=== PATIENT | male | born 1960 | race Caucasian/White ===

== ENCOUNTER 2021-08-30 22:36 | Inpatient (IN) ==
[2021-08-30] MEDS ORDERED: *HR* OxyCODONE Immed Rel 5 MG TABLET PO PRN (22:38)
[2021-08-30] MEDS ORDERED: Dextrose Gel 15 GM/37.5 ML TUBE PO PRN ×2 (22:41)
[2021-08-30] MEDS ORDERED: D5% in Water 1,000 ML IVC PRN (22:41)
[2021-08-30] MEDS ORDERED: *HR* Dextrose 50 % in Water (Syg) 50 ML SYRINGE IVP PRN (22:41)
[2021-08-31] MEDS ORDERED: Lactulose Oral Soln 20 GM/30 ML UDC PO PRN (06:13)
[2021-08-31] MEDS ORDERED: Bisacodyl 10 MG RECTAL SUPPOSITORY RC PRN (06:13)
[2021-08-31 07:21] LABS: Basophils # 0.1 K/mcL (0.0-0.2); Basophils % 0.7 %; Eosinophils # 0.3 K/mcL (0.0-0.6); Eosinophils % 4.3 %; Hematocrit 31.6 % (37.5-50.1); Immature Granulocytes % 0.7 % (0-4); Lymphocytes # 0.6 K/mcL (0.6-4.6); Lymphocytes % 9.5 %; Mean Corpuscular HGB Conc 31.6 g/dL (31.6-35.5); Mean Corpuscular Hemoglobin 27.9 pg (28.0-33.3); Mean Corpuscular Volume 88.3 fL (83.0-100.0); Mean Platelet Volume 9.7 fL (9.4-12.4); Monocytes # 0.8 K/mcL (0.0-1.3); Monocytes % 11.5 %; Platelet Count 340 K/mcL (140-400); Red Blood Count 3.58 M/mcL (4.19-5.50); Red Cell Distribution Width 14.4 % (11.5-14.5); Segmented Neutrophils % 73.3 %; White Blood Count 6.8 K/mcL (4.3-11.1)
[2021-08-31 07:46] LABS: Potassium 4.8 mEq/L (3.5-5.1)
[2021-08-31] MEDS: Insulin LISPRO 300 UNITS/3 ML VIAL SUBQ SCH ×4 (08:43→21:43)
[2021-08-31] MEDS: Apixaban 5 MG TABLET PO SCH ×2 (08:45→22:10)
[2021-08-31] MEDS: lisinopriL 5 MG TABLET PO SCH (08:45)
[2021-08-31] MEDS: Ascorbic Acid 500 MG TABLET PO SCH (08:45)
[2021-08-31] MEDS: Sennosides/Docusate Sodium TABLET PO SCH ×2 (08:45→22:10)
[2021-08-31] MEDS: carvediloL 6.25 MG TABLET PO SCH ×2 (08:45→17:28)
[2021-08-31] MEDS: GlipiZIDE 5 MG TABLET PO SCH ×2 (08:45→22:10)
[2021-08-31] MEDS: amLODIPine 5 MG TABLET PO SCH (08:46)
[2021-08-31] MEDS: Furosemide 40 MG TABLET PO SCH (08:46)
[2021-08-31] MEDS ORDERED: polyethylene glycoL 3350 17 GM POWD.PACK PO SCH (09:00)
[2021-09-01 07:13] LABS: Hemoglobin 8.6 g/dL (12.9-16.9)
[2021-09-01] MEDS: carvediloL 6.25 MG TABLET PO SCH ×3 (08:10→18:48)
[2021-09-01] MEDS: Ascorbic Acid 500 MG TABLET PO SCH (08:10)
[2021-09-01] MEDS: GlipiZIDE 5 MG TABLET PO SCH ×2 (08:10→21:34)
[2021-09-01] MEDS: Apixaban 5 MG TABLET PO SCH ×2 (08:10→21:35)
[2021-09-01] MEDS: Sennosides/Docusate Sodium TABLET PO SCH ×2 (08:11→21:35)
[2021-09-01] MEDS: Furosemide 40 MG TABLET PO SCH (08:11)
[2021-09-01] MEDS: amLODIPine 5 MG TABLET PO SCH (08:11)
[2021-09-01] MEDS: lisinopriL 5 MG TABLET PO SCH (08:11)
[2021-09-01] MEDS: Insulin LISPRO 300 UNITS/3 ML VIAL SUBQ SCH ×4 (08:12→21:36)
[2021-09-02] MEDS: Acetaminophen 325 MG TABLET PO PRN ×2 (07:11→17:28)
[2021-09-02] MEDS: carvediloL 6.25 MG TABLET PO SCH ×2 (07:12→17:49)
[2021-09-02] MEDS: Insulin LISPRO 300 UNITS/3 ML VIAL SUBQ SCH ×4 (07:16→20:36)
[2021-09-02] MEDS: lisinopriL 5 MG TABLET PO SCH (08:26)
[2021-09-02] MEDS: Ascorbic Acid 500 MG TABLET PO SCH (08:26)
[2021-09-02] MEDS: amLODIPine 5 MG TABLET PO SCH (08:26)
[2021-09-02] MEDS: Sennosides/Docusate Sodium TABLET PO SCH ×2 (08:26→20:47)
[2021-09-02] MEDS: GlipiZIDE 5 MG TABLET PO SCH ×2 (08:26→20:47)
[2021-09-02] MEDS: Apixaban 5 MG TABLET PO SCH ×2 (08:26→20:47)
[2021-09-02] MEDS: Furosemide 40 MG TABLET PO SCH (08:27)
[2021-09-03] MEDS: Acetaminophen 325 MG TABLET PO PRN (03:14)
[2021-09-03 06:39] LABS: Basophils # 0.1 K/mcL (0.0-0.2); Basophils % 0.7 %; Eosinophils # 0.4 K/mcL (0.0-0.6); Eosinophils % 4.9 %; Hemoglobin 9.6 g/dL (12.9-16.9); Immature Granulocytes % 0.7 % (0-4); Lymphocytes # 0.7 K/mcL (0.6-4.6); Lymphocytes % 9.8 %; Mean Corpuscular Hemoglobin 27.1 pg (28.0-33.3); Mean Corpuscular Volume 87.6 fL (83.0-100.0); Mean Platelet Volume 9.2 fL (9.4-12.4); Monocytes # 0.6 K/mcL (0.0-1.3); Monocytes % 8.4 %; Neutrophils # 5.7 K/mcL (1.6-8.9); Platelet Count 357 K/mcL (140-400); Red Blood Count 3.54 M/mcL (4.19-5.50); Red Cell Distribution Width 14.5 % (11.5-14.5); Segmented Neutrophils % 75.5 %; White Blood Count 7.5 K/mcL (4.3-11.1)
[2021-09-03 07:14] LABS: Albumin 3.3 g/dL (3.5-5.7); Albumin/Globulin Ratio 0.9 (1.1-2.2); Bilirubin,Total 0.3 mg/dL (0.3-1.0); Calcium 9.8 mg/dL (8.6-10.3); Globulin 3.6 g/dL (2.4-3.5); Magnesium 2.3 mg/dL (1.6-2.6); Potassium 4.3 mEq/L (3.5-5.1); Total Protein 6.9 g/dL (6.4-8.9)
[2021-09-03] MEDS: GlipiZIDE 5 MG TABLET PO SCH ×2 (07:52→21:40)
[2021-09-03] MEDS: lisinopriL 5 MG TABLET PO SCH (07:53)
[2021-09-03] MEDS: Ascorbic Acid 500 MG TABLET PO SCH (07:53)
[2021-09-03] MEDS: Furosemide 40 MG TABLET PO SCH (07:53)
[2021-09-03] MEDS: amLODIPine 5 MG TABLET PO SCH (07:53)
[2021-09-03] MEDS: Apixaban 5 MG TABLET PO SCH ×2 (07:53→21:41)
[2021-09-03] MEDS: carvediloL 6.25 MG TABLET PO SCH ×2 (07:53→18:28)
[2021-09-03] MEDS: Insulin LISPRO 300 UNITS/3 ML VIAL SUBQ SCH ×4 (07:54→21:42)
[2021-09-03] MEDS: Sennosides/Docusate Sodium TABLET PO SCH ×2 (07:55→21:41)
[2021-09-03] MEDS: Ergocalciferol (VIT D2) 50,000 UNIT (1.25MG) CAP PO SCH (08:37)
[2021-09-04] MEDS: Insulin LISPRO 300 UNITS/3 ML VIAL SUBQ SCH ×4 (07:48→21:52)
[2021-09-04] MEDS: carvediloL 6.25 MG TABLET PO SCH ×2 (08:31→17:07)
[2021-09-04] MEDS: GlipiZIDE 5 MG TABLET PO SCH ×2 (08:32→21:49)
[2021-09-04] MEDS: Sennosides/Docusate Sodium TABLET PO SCH ×2 (08:32→21:50)
[2021-09-04] MEDS: Apixaban 5 MG TABLET PO SCH ×2 (08:32→21:51)
[2021-09-04] MEDS: Calcium Acetate 667 MG CAPSULE PO SCH ×3 (08:32→17:07)
[2021-09-04] MEDS: lisinopriL 5 MG TABLET PO SCH (08:32)
[2021-09-04] MEDS: amLODIPine 5 MG TABLET PO SCH (08:32)
[2021-09-04] MEDS: Furosemide 40 MG TABLET PO SCH (08:32)
[2021-09-04] MEDS: Ascorbic Acid 500 MG TABLET PO SCH (08:32)
[2021-09-04] MEDS: Acetaminophen 325 MG TABLET PO PRN ×2 (11:14→21:50)
[2021-09-05] MEDS: Acetaminophen 325 MG TABLET PO PRN ×2 (05:56→22:00)
[2021-09-05] MEDS: Insulin LISPRO 300 UNITS/3 ML VIAL SUBQ SCH ×4 (08:24→22:00)
[2021-09-05] MEDS: GlipiZIDE 5 MG TABLET PO SCH ×2 (08:25→22:00)
[2021-09-05] MEDS: lisinopriL 5 MG TABLET PO SCH (08:25)
[2021-09-05] MEDS: Furosemide 40 MG TABLET PO SCH (08:26)
[2021-09-05] MEDS: Sennosides/Docusate Sodium TABLET PO SCH ×2 (08:26→22:00)
[2021-09-05] MEDS: amLODIPine 5 MG TABLET PO SCH (08:26)
[2021-09-05] MEDS: Calcium Acetate 667 MG CAPSULE PO SCH ×3 (08:26→17:12)
[2021-09-05] MEDS: carvediloL 6.25 MG TABLET PO SCH ×2 (08:26→17:12)
[2021-09-05] MEDS: Ascorbic Acid 500 MG TABLET PO SCH (08:26)
[2021-09-05] MEDS: Apixaban 5 MG TABLET PO SCH ×2 (08:26→22:00)
[2021-09-06] MEDS: Insulin LISPRO 300 UNITS/3 ML VIAL SUBQ SCH ×4 (07:19→22:03)
[2021-09-06] MEDS: amLODIPine 5 MG TABLET PO SCH (08:44)
[2021-09-06] MEDS: Sennosides/Docusate Sodium TABLET PO SCH ×2 (08:44→20:10)
[2021-09-06] MEDS: Ascorbic Acid 500 MG TABLET PO SCH (08:44)
[2021-09-06] MEDS: Apixaban 5 MG TABLET PO SCH ×2 (08:44→20:10)
[2021-09-06] MEDS: GlipiZIDE 5 MG TABLET PO SCH ×2 (08:44→20:10)
[2021-09-06] MEDS: carvediloL 6.25 MG TABLET PO SCH ×2 (08:44→18:35)
[2021-09-06] MEDS: Calcium Acetate 667 MG CAPSULE PO SCH ×3 (08:44→18:35)
[2021-09-06] MEDS: Furosemide 40 MG TABLET PO SCH (08:44)
[2021-09-06] MEDS: lisinopriL 5 MG TABLET PO SCH (08:44)
[2021-09-06] MEDS: Acetaminophen 325 MG TABLET PO PRN (12:00)
[2021-09-07] MEDS: Acetaminophen 325 MG TABLET PO PRN ×3 (03:45→16:49)
[2021-09-07] MEDS: Insulin LISPRO 300 UNITS/3 ML VIAL SUBQ SCH ×4 (07:25→20:29)
[2021-09-07] MEDS: carvediloL 6.25 MG TABLET PO SCH ×2 (08:43→16:45)
[2021-09-07] MEDS: Calcium Acetate 667 MG CAPSULE PO SCH ×3 (08:44→16:45)
[2021-09-07] MEDS: Sennosides/Docusate Sodium TABLET PO SCH ×2 (08:44→20:28)
[2021-09-07] MEDS: GlipiZIDE 5 MG TABLET PO SCH ×2 (08:44→20:28)
[2021-09-07] MEDS: Ascorbic Acid 500 MG TABLET PO SCH (08:44)
[2021-09-07] MEDS: amLODIPine 5 MG TABLET PO SCH (08:44)
[2021-09-07] MEDS: lisinopriL 5 MG TABLET PO SCH (08:44)
[2021-09-07] MEDS: Furosemide 40 MG TABLET PO SCH (08:44)
[2021-09-07] MEDS: Apixaban 5 MG TABLET PO SCH ×2 (08:44→20:28)
[2021-09-08] MEDS: Acetaminophen 325 MG TABLET PO PRN (06:18)
[2021-09-08] MEDS: Insulin LISPRO 300 UNITS/3 ML VIAL SUBQ SCH ×4 (07:31→20:03)
[2021-09-08] MEDS: Furosemide 40 MG TABLET PO SCH (09:42)
[2021-09-08] MEDS: Sennosides/Docusate Sodium TABLET PO SCH ×2 (09:42→20:03)
[2021-09-08] MEDS: amLODIPine 5 MG TABLET PO SCH (09:42)
[2021-09-08] MEDS: Apixaban 5 MG TABLET PO SCH ×2 (09:42→20:02)
[2021-09-08] MEDS: Calcium Acetate 667 MG CAPSULE PO SCH ×3 (09:42→16:58)
[2021-09-08] MEDS: GlipiZIDE 5 MG TABLET PO SCH ×2 (09:42→20:02)
[2021-09-08] MEDS: lisinopriL 5 MG TABLET PO SCH (09:42)
[2021-09-08] MEDS: carvediloL 6.25 MG TABLET PO SCH ×2 (09:42→16:58)
[2021-09-08] MEDS: Ascorbic Acid 500 MG TABLET PO SCH (09:42)
[2021-09-09] MEDS: Acetaminophen 325 MG TABLET PO PRN ×2 (03:27→18:36)
[2021-09-09 05:27] LABS: Basophils # 0.1 K/mcL (0.0-0.2); Basophils % 0.5 %; Eosinophils # 0.4 K/mcL (0.0-0.6); Eosinophils % 4.5 %; Hemoglobin 11.1 g/dL (12.9-16.9); Immature Granulocytes % 0.8 % (0-4); Lymphocytes # 0.9 K/mcL (0.6-4.6); Mean Corpuscular HGB Conc 30.8 g/dL (31.6-35.5); Mean Corpuscular Hemoglobin 27.5 pg (28.0-33.3); Mean Corpuscular Volume 89.1 fL (83.0-100.0); Mean Platelet Volume 9.5 fL (9.4-12.4); Monocytes # 0.8 K/mcL (0.0-1.3); Monocytes % 8.6 %; Platelet Count 336 K/mcL (140-400); Red Blood Count 4.04 M/mcL (4.19-5.50); Red Cell Distribution Width 15.9 % (11.5-14.5); Segmented Neutrophils % 75.6 %; White Blood Count 9.3 K/mcL (4.3-11.1)
[2021-09-09] MEDS: Insulin LISPRO 300 UNITS/3 ML VIAL SUBQ SCH ×4 (07:17→19:55)
[2021-09-09] MEDS: lisinopriL 5 MG TABLET PO SCH (07:39)
[2021-09-09] MEDS: Sennosides/Docusate Sodium TABLET PO SCH ×2 (07:39→21:30)
[2021-09-09] MEDS: GlipiZIDE 5 MG TABLET PO SCH ×2 (07:39→21:31)
[2021-09-09] MEDS: amLODIPine 5 MG TABLET PO SCH (07:39)
[2021-09-09] MEDS: Apixaban 5 MG TABLET PO SCH ×2 (07:40→21:31)
[2021-09-09] MEDS: Ascorbic Acid 500 MG TABLET PO SCH (07:40)
[2021-09-09] MEDS: Furosemide 40 MG TABLET PO SCH (07:40)
[2021-09-09] MEDS: carvediloL 6.25 MG TABLET PO SCH ×2 (07:40→15:18)
[2021-09-09] MEDS: Calcium Acetate 667 MG CAPSULE PO SCH ×3 (07:40→15:18)
[2021-09-10] MEDS: Acetaminophen 325 MG TABLET PO PRN (06:07)
[2021-09-10] MEDS: Insulin LISPRO 300 UNITS/3 ML VIAL SUBQ SCH ×4 (07:46→20:28)
[2021-09-10] MEDS: amLODIPine 5 MG TABLET PO SCH (08:14)
[2021-09-10] MEDS: lisinopriL 5 MG TABLET PO SCH (08:15)
[2021-09-10] MEDS: GlipiZIDE 5 MG TABLET PO SCH ×2 (08:16→20:24)
[2021-09-10] MEDS: Calcium Acetate 667 MG CAPSULE PO SCH ×4 (08:16→20:25)
[2021-09-10] MEDS: Sennosides/Docusate Sodium TABLET PO SCH ×2 (08:16→20:25)
[2021-09-10] MEDS: Furosemide 40 MG TABLET PO SCH (08:17)
[2021-09-10] MEDS: Ascorbic Acid 500 MG TABLET PO SCH (08:17)
[2021-09-10] MEDS: carvediloL 6.25 MG TABLET PO SCH ×3 (08:17→20:25)
[2021-09-10] MEDS: Apixaban 5 MG TABLET PO SCH ×2 (08:18→20:24)
[2021-09-10] MEDS: Ergocalciferol (VIT D2) 50,000 UNIT (1.25MG) CAP PO SCH (09:49)
[2021-09-11] MEDS: Acetaminophen 325 MG TABLET PO PRN ×2 (04:01→18:08)
[2021-09-11] MEDS: Insulin LISPRO 300 UNITS/3 ML VIAL SUBQ SCH ×4 (07:23→20:17)
[2021-09-11] MEDS: GlipiZIDE 5 MG TABLET PO SCH ×2 (08:02→20:16)
[2021-09-11] MEDS: carvediloL 6.25 MG TABLET PO SCH ×2 (08:03→16:56)
[2021-09-11] MEDS: Calcium Acetate 667 MG CAPSULE PO SCH ×3 (08:03→16:56)
[2021-09-11] MEDS: Ascorbic Acid 500 MG TABLET PO SCH (08:03)
[2021-09-11] MEDS: Sennosides/Docusate Sodium TABLET PO SCH ×2 (08:04→20:16)
[2021-09-11] MEDS: lisinopriL 5 MG TABLET PO SCH (08:04)
[2021-09-11] MEDS: Furosemide 40 MG TABLET PO SCH (08:05)
[2021-09-11] MEDS: amLODIPine 5 MG TABLET PO SCH (08:05)
[2021-09-11] MEDS: Apixaban 5 MG TABLET PO SCH ×2 (08:05→20:16)
[2021-09-12] MEDS: Insulin LISPRO 300 UNITS/3 ML VIAL SUBQ SCH ×4 (07:33→19:29)
[2021-09-12] MEDS: Acetaminophen 325 MG TABLET PO PRN (07:35)
[2021-09-12] MEDS: GlipiZIDE 5 MG TABLET PO SCH ×2 (08:29→20:42)
[2021-09-12] MEDS: carvediloL 6.25 MG TABLET PO SCH ×2 (08:29→16:55)
[2021-09-12] MEDS: Calcium Acetate 667 MG CAPSULE PO SCH ×3 (08:29→16:55)
[2021-09-12] MEDS: Ascorbic Acid 500 MG TABLET PO SCH (08:29)
[2021-09-12] MEDS: lisinopriL 5 MG TABLET PO SCH (08:30)
[2021-09-12] MEDS: Apixaban 5 MG TABLET PO SCH ×2 (08:32→20:42)
[2021-09-12] MEDS: Furosemide 40 MG TABLET PO SCH (08:32)
[2021-09-12] MEDS: amLODIPine 5 MG TABLET PO SCH (08:32)
[2021-09-12] MEDS: Sennosides/Docusate Sodium TABLET PO SCH ×2 (08:32→20:43)
[2021-09-13] MEDS: Acetaminophen 325 MG TABLET PO PRN ×4 (00:40→21:28)
[2021-09-13] MEDS: Insulin LISPRO 300 UNITS/3 ML VIAL SUBQ SCH ×4 (07:47→21:29)
[2021-09-13] MEDS: GlipiZIDE 5 MG TABLET PO SCH ×2 (07:48→21:28)
[2021-09-13] MEDS: Ascorbic Acid 500 MG TABLET PO SCH (07:49)
[2021-09-13] MEDS: lisinopriL 5 MG TABLET PO SCH (07:49)
[2021-09-13] MEDS: Apixaban 5 MG TABLET PO SCH ×2 (07:49→21:28)
[2021-09-13] MEDS: carvediloL 6.25 MG TABLET PO SCH ×2 (07:49→18:57)
[2021-09-13] MEDS: Sennosides/Docusate Sodium TABLET PO SCH ×2 (07:50→21:28)
[2021-09-13] MEDS: amLODIPine 5 MG TABLET PO SCH (07:50)
[2021-09-13] MEDS: Calcium Acetate 667 MG CAPSULE PO SCH ×3 (07:50→18:57)
[2021-09-13] MEDS: Furosemide 40 MG TABLET PO SCH (07:50)
[2021-09-14] MEDS: Acetaminophen 325 MG TABLET PO PRN ×2 (03:27→12:00)
[2021-09-14] MEDS: amLODIPine 5 MG TABLET PO SCH (08:19)
[2021-09-14] MEDS: Insulin LISPRO 300 UNITS/3 ML VIAL SUBQ SCH ×4 (08:19→22:57)
[2021-09-14] MEDS: Calcium Acetate 667 MG CAPSULE PO SCH ×3 (08:20→16:10)
[2021-09-14] MEDS: Apixaban 5 MG TABLET PO SCH ×2 (08:20→22:50)
[2021-09-14] MEDS: Ascorbic Acid 500 MG TABLET PO SCH (08:20)
[2021-09-14] MEDS: lisinopriL 5 MG TABLET PO SCH (08:20)
[2021-09-14] MEDS: GlipiZIDE 5 MG TABLET PO SCH ×2 (08:20→22:50)
[2021-09-14] MEDS: Sennosides/Docusate Sodium TABLET PO SCH ×2 (08:20→22:50)
[2021-09-14] MEDS: Furosemide 40 MG TABLET PO SCH (08:21)
[2021-09-14] MEDS: carvediloL 6.25 MG TABLET PO SCH ×2 (08:21→16:10)
[2021-09-15] MEDS: *HR* HYDROcodone/Acet 5/325 mg TABLET PO PRN ×2 (00:16→21:29)
[2021-09-15] MEDS: Insulin LISPRO 300 UNITS/3 ML VIAL SUBQ SCH ×4 (07:16→21:30)
[2021-09-15 08:09] LABS: Basophils # 0.1 K/mcL (0.0-0.2); Basophils % 0.7 %; Eosinophils # 0.3 K/mcL (0.0-0.6); Eosinophils % 4.1 %; Hematocrit 36.1 % (37.5-50.1); Hemoglobin 11.2 g/dL (12.9-16.9); Immature Granulocytes % 0.4 % (0-4); Lymphocytes % 12.3 %; Mean Corpuscular Hemoglobin 27.6 pg (28.0-33.3); Mean Corpuscular Volume 88.9 fL (83.0-100.0); Mean Platelet Volume 9.3 fL (9.4-12.4); Monocytes # 0.8 K/mcL (0.0-1.3); Monocytes % 9.9 %; Neutrophils # 5.8 K/mcL (1.6-8.9); Platelet Count 295 K/mcL (140-400); Red Blood Count 4.06 M/mcL (4.19-5.50); Red Cell Distribution Width 16.3 % (11.5-14.5); Segmented Neutrophils % 72.6 %
[2021-09-15 08:30] LABS: Albumin 3.7 g/dL (3.5-5.7); Albumin/Globulin Ratio 1.1 (1.1-2.2); Bilirubin,Total 0.4 mg/dL (0.3-1.0); Calcium 9.9 mg/dL (8.6-10.3); Globulin 3.3 g/dL (2.4-3.5); Potassium 4.6 mEq/L (3.5-5.1)
[2021-09-15] MEDS: Ascorbic Acid 500 MG TABLET PO SCH (08:41)
[2021-09-15] MEDS: carvediloL 6.25 MG TABLET PO SCH ×2 (08:41→17:55)
[2021-09-15] MEDS: amLODIPine 5 MG TABLET PO SCH (08:41)
[2021-09-15] MEDS: GlipiZIDE 5 MG TABLET PO SCH ×2 (08:41→21:28)
[2021-09-15] MEDS: Calcium Acetate 667 MG CAPSULE PO SCH ×3 (08:41→17:55)
[2021-09-15] MEDS: lisinopriL 5 MG TABLET PO SCH (08:42)
[2021-09-15] MEDS: Apixaban 5 MG TABLET PO SCH ×2 (08:42→21:29)
[2021-09-15] MEDS: Furosemide 40 MG TABLET PO SCH (08:42)
[2021-09-15] MEDS: Sennosides/Docusate Sodium TABLET PO SCH ×2 (08:44→21:28)
[2021-09-15] MEDS: Melatonin 3 MG TABLET PO PRN (21:28)
[2021-09-16] MEDS: carvediloL 6.25 MG TABLET PO SCH ×2 (07:52→17:06)
[2021-09-16] MEDS: GlipiZIDE 5 MG TABLET PO SCH ×2 (07:52→19:50)
[2021-09-16] MEDS: Apixaban 5 MG TABLET PO SCH ×2 (07:52→19:50)
[2021-09-16] MEDS: Ascorbic Acid 500 MG TABLET PO SCH (07:52)
[2021-09-16] MEDS: Sennosides/Docusate Sodium TABLET PO SCH ×2 (07:52→19:55)
[2021-09-16] MEDS: lisinopriL 5 MG TABLET PO SCH (07:53)
[2021-09-16] MEDS: Calcium Acetate 667 MG CAPSULE PO SCH ×3 (07:53→17:06)
[2021-09-16] MEDS: Furosemide 40 MG TABLET PO SCH (07:53)
[2021-09-16] MEDS: amLODIPine 5 MG TABLET PO SCH (07:53)
[2021-09-16] MEDS: Insulin LISPRO 300 UNITS/3 ML VIAL SUBQ SCH ×4 (08:00→21:08)
[2021-09-16] MEDS: Melatonin 3 MG TABLET PO PRN (19:49)
[2021-09-17] MEDS: Insulin LISPRO 300 UNITS/3 ML VIAL SUBQ SCH ×4 (07:30→21:54)
[2021-09-17] MEDS: Sennosides/Docusate Sodium TABLET PO SCH ×2 (07:54→19:45)
[2021-09-17] MEDS: Apixaban 5 MG TABLET PO SCH ×2 (07:54→19:46)
[2021-09-17] MEDS: GlipiZIDE 5 MG TABLET PO SCH ×2 (07:54→19:45)
[2021-09-17] MEDS: carvediloL 6.25 MG TABLET PO SCH ×2 (07:54→18:03)
[2021-09-17] MEDS: Calcium Acetate 667 MG CAPSULE PO SCH ×3 (07:54→18:03)
[2021-09-17] MEDS: amLODIPine 5 MG TABLET PO SCH (07:54)
[2021-09-17] MEDS: Furosemide 40 MG TABLET PO SCH (07:54)
[2021-09-17] MEDS: Ascorbic Acid 500 MG TABLET PO SCH (07:54)
[2021-09-17] MEDS: lisinopriL 5 MG TABLET PO SCH (07:55)
[2021-09-17] MEDS: Ergocalciferol (VIT D2) 50,000 UNIT (1.25MG) CAP PO SCH (08:00)
[2021-09-17] MEDS: *HR* HYDROcodone/Acet 5/325 mg TABLET PO PRN (19:50)
[2021-09-17 20:35] VITALS: RESP 16; O2SAT 99
[2021-09-18 07:14] VITALS: BP 140/84; PULSE 80; TEMP 97.8
[2021-09-18] MEDS: Insulin LISPRO 300 UNITS/3 ML VIAL SUBQ SCH (07:19)
[2021-09-18] MEDS: lisinopriL 5 MG TABLET PO SCH (11:09)
[2021-09-18] MEDS: Apixaban 5 MG TABLET PO SCH (11:09)
[2021-09-18] MEDS: amLODIPine 5 MG TABLET PO SCH (11:10)
[2021-09-18] MEDS: GlipiZIDE 5 MG TABLET PO SCH (11:10)
[2021-09-18] MEDS: carvediloL 6.25 MG TABLET PO SCH (11:10)
[2021-09-18] MEDS: Ascorbic Acid 500 MG TABLET PO SCH (11:10)
[2021-09-18] MEDS: Calcium Acetate 667 MG CAPSULE PO SCH (11:10)
[2021-09-18] MEDS: Furosemide 40 MG TABLET PO SCH (11:10)
[2021-09-18] MEDS: Sennosides/Docusate Sodium TABLET PO SCH (11:11)
== END 2021-09-18 11:48 | disposition home health service (06) | DRG 638 ==
LOC: INPPIK → OBSVTOIN 08-31 00:11
PROVIDERS: ADMIT Family Medicine; ATTEND Family Medicine